=== PATIENT | female | born 1960 | race African-American/Black ===

== ENCOUNTER 2019-09-09 17:20 | Emergency (ER) | payer MEDICAID ==
[~2019-09-09] VITALS: Ht 172.7 cm; Wt 105.2 kg
[2019-09-09 17:59] VITALS: BP 138/83
[2019-09-09] MEDS ORDERED: NALBUPHINE HCL 10 MG/1ml INJECTION IM ONE (21:00)
[2019-09-09] MEDS ORDERED: KETOROLAC TROMETH 60MG/2ML VIAL IM ONE (21:15)
== END 2019-09-09 21:30 | disposition home or self-care (01) ==
LOC: ER 17:20
DX: M17.12 Unilateral primary osteoarthritis, left knee (principal); M54.9 Dorsalgia, unspecified; G89.29 Other chronic pain; W11.XXXA Fall on and from ladder, initial encounter; Y93.89 Activity, other specified; Y92.89 Other specified places as the place of occurrence of the external cause; Y99.8 Other external cause status
CPT/HCPCS: 72100; 73562; 93005; 96372; 99283; J1885